=== PATIENT | female | born 1960 | race Caucasian/White ===

== ENCOUNTER → 2023-09-08 12:08 | Outpatient (REF) | payer BC, SELFPAY | LOC: DHCBC/DCA 12:08 | PROVIDERS: ATTENDING PHYSICIAN Internal Medicine Interventional Cardiology; FAMILY PHYSICIAN Emergency Medicine | DX: R06.09 Other forms of dyspnea (principal); G45.9 Transient cerebral ischemic attack, unspecified | CPT/HCPCS: 78452; 93017; A9500 ==

== ENCOUNTER 2023-11-11 10:35 | Emergency (ER) | payer BC, SELFPAY ==
[2023-11-11 10:38] VITALS: BP 128/73; BMI 21.3
[2023-11-11 10:43] VITALS: BP 128/73
--- NOTE | 2023-11-11 10:45 | ED.GENMED ---
History of Present Illness
General
Chief Complaint: Weakness
Time Seen by Provider: 11/11/23 10:37
History of Present Illness
History of Present Illness:
63-year-old female presents to the emergency department for evaluation of abrupt onset of bilateral, left greater than right, leg weakness developing while at work today. She states he was walking out of the freezer at [facility] when she felt as
though she could not walk. She is lowered herself to the ground nonnormal was called. She states the symptoms have since resolved. Has no history of similar. She does have chronic back pain due to known multiple lumbar disc herniations, denies
any bladder or bowel dysfunction, denies any saddle anesthesias or lower extremity paresthesias.
Past History
Past History
ED Past Medical History: Asthma, GERD and Other (? TIA vs complicated migraine)
ED Past Surgical History: Cholecystectomy and
Social History
Tobacco: Non-smoker
Alcohol: Occasional
Drug: None
Personal:
Living: with family
Employment: Employed
Family History
Family History: Other
Review of Systems
Review of Systems
Allergies reviewed?: Yes
All Other Systems: ROS reviewed and negative except as documented in HPI and ROS
Phy Exam
Physical Exam
Physical Exam:
GEN: Well appearing, NAD, WDWN
HEENT: Oral mucosa moist, no scleral icterus, no nasal congestion
Cardiac: Regular rate
Lung: No respiratory distress, no tachypnea
MSK: No gross deformity or injuries
Skin: Good color, no pallor or jaundice, no rashes
Neuro: AO x3; CN II-XII grossly intact. BUE strength 5/5 in all finnegan, sensation intact and symmetric. BLE strength 5/5 in all finnegan, sensation intact and symmetric, patellar reflexes 2+ bilaterally
Psych: Calm, cooperative
Course
Orders/Labs/Results
Orders:
Orders
11/11/23 10:37
Electrocardiogram (*1) Urgent
Reason for Study: Vertigo / Dizzy
EKG- Treatment ONCE
11/11/23 10:40
CMP [Comprehensive Metabolic Panel] Urgent
Complete Blood Count/With Diff Urgent
Abnormal Lab Results
11/11/23
10:40
RBC 4.10 L 10^6/uL
(4.20-5.40)
MCH 32.2 H pg
(27.0-31.0)
Eosinophils % 6.1 H %
(0-6)
BUN 22 H mg/dl
(7-17)
AST 40 H U/L
(14-36)
11/11/23 10:40
11/11/23 10:40
Vital Signs
Initial and Last Documented VS:
Initial Vital Signs
Temp Pulse Resp BP Pulse Ox
98.5 F 84 16 128/73 97
11/11/23 10:38 11/11/23 10:38 11/11/23 10:38 11/11/23 10:38 11/11/23 10:38
Last Documented Vital Signs
Temp Pulse Resp BP Pulse Ox
98.5 F 66 21 127/103 98
11/11/23 10:38 11/11/23 11:45 11/11/23 11:45 11/11/23 11:00 11/11/23 11:45
MDM/Problems Addressed
MDM/Problems Addressed:
Patient has an unremarkable neurologic exam. Certainly consider a TIA versus lumbar radiculopathy, she has no active back pain at this time, and no focal neurologic deficits suggesting spinal cord compression. Doubt CVA/TIA given bilateral nature.
Labs are reassuring. Recommend outpatient primary care follow-up
*Critical Care Note
Total Time (30-74mins, 75-104mins- exclusive of procedures): Not Applicable
ED Attending Note
-
Portions of this chart may have been created with voice recognition software.� Occasional wrong word or��sound alike� substitutions may have occurred due to the inherent limitations of voice recognition software.
Discharge Plan
Departure
Patient Disposition: Home (Routine Discharge)
Date of Disposition: 11/11/23
Time of Disposition: 11:39
Patient with high blood pressure during this ER visit?: No
Discharge Problem:
Bilateral leg weakness
Instructions: Generalized Weakness (DC)
Prescriptions:
No Action
atorvastatin 40 MG tablet
40 mg PO QPM
calcium carb-D3-mag ox-zinc ox 333 mg-133 unit -133 mg-5 mg Tablet
1 tab PO DAILY
aspirin 81 MG tablet,chewable
81 mg PO DAILY
turmeric 400 mg Capsule
400 mg PO DAILY
Potassium
1 dose PO DAILY
doxycycline hyclate 100 mg capsule
100 mg PO BID
clopidogrel 75 mg Tablet
75 mg PO DAILY Qty: 21 0RF
famotidine 20 mg Tablet
20 mg PO BID 30 Days Qty: 60 0RF
Activity Restrictions/Additional Instructions:
Your workup is reassuring and there are no objective signs of weakness on your exam. If your symptoms continue to occur please follow-up with your primary care physician for further workup
Interventions
Interventions:
*Risk Screen - Suicide Last Done: 11/11/23 10:38
*General Assessment Last Done: 11/11/23 10:38
*Neglect/Abuse Screening Last Done: 11/11/23 10:38
ED- Fall Risk Assessment Last Done: 11/11/23 10:38
*ED COVID-19 Vaccine History Last Done: 11/11/23 10:38
*Nursing Disposition Last Done: 11/11/23 11:46
ED- Cardiac Assessment Last Done: 11/11/23 10:38
ED- Neurological Assessment Last Done: 11/11/23 10:38
ED- Pulmonary Assessment Last Done: 11/11/23 10:38
Discharge Date and Time
Discharge Date/Time: 11/11/23 11:57
Print Language: KHMER
[2023-11-11 11:00] VITALS: BP 127/103
[2023-11-11 11:05] LABS: % Basophils 0.8 % (0-2); % Eosinophils 6.1 % (0-6); % Immature Granulocytes 0.2 % (0-0.5); % Lymphocytes 28.7 % (20.5-51.1); % Monocytes 6.3 % (1.7-9.3); % Neutrophils 57.9 % (42.2-75.2); Absolute Basophils 0.1 10^3/uL (0-0.2); Absolute Eosinophils 0.4 10^3/uL (0-0.7); Absolute Lymphocytes 1.9 10^3/uL (1.2-3.4); Absolute Monocytes 0.4 10^3/uL (0.1-0.6); Absolute Neutrophils 3.8 10^3/uL (1.4-6.5); Hematocrit 37.4 % (37.0-47.0); Hemoglobin 13.2 g/dL (12.0-16.0); Mean Corp Hgb Conc. 35.3 g/dL (33.0-37.0); Mean Corpuscular Hgb 32.2 pg (27.0-31.0); Mean Corpuscular Volume 91.2 fL (81.0-99.0); Mean Platelet Volume 8.9 fL (7.4-10.4); Nucleated Red Blood Cells % 0 %; Platelet Count 279 10^3/uL (130-400); Red Cell Dist. Width 11.9 % (11.5-14.5); White Blood Cell Count 6.5 10^3/uL (4.8-10.8)
[2023-11-11 11:10] LABS: ALT (SGPT) 35 U/L (0-35); AST (SGOT) 40 U/L (14-36); Albumin 4.5 g/dl (3.5-5.0); Alkaline Phosphatase 96 U/L (38-126); Blood Urea Nitrogen 22 mg/dl (7-17); Calcium 9.9 mg/dl (8.4-10.2); Carbon Dioxide 28 mmol/L (22-30); Chloride 103 mmol/L (98-107); Estimated Creatinine Clearance 80 ml/min; Glucose 92 mg/dl (70-99); Potassium 4.2 mmol/L (3.5-5.1); Sodium 135 mmol/L (135-145); Total Bilirubin 0.6 mg/dl (0.2-1.3); eGFR > 60.00
== END 2023-11-11 11:57 | disposition home or self-care (01) ==
LOC: EMR 10:35
PROVIDERS: EMERGENCY PHYSICIAN Emergency Medicine; FAMILY PHYSICIAN Emergency Medicine
DX: M62.81 Muscle weakness (generalized) (principal); R26.2 Difficulty in walking, not elsewhere classified; M54.9 Dorsalgia, unspecified; G89.29 Other chronic pain; M51.26 Other intervertebral disc displacement, lumbar region; K21.9 Gastro-esophageal reflux disease without esophagitis; J45.909 Unspecified asthma, uncomplicated; Z79.82 Long term (current) use of aspirin; Z90.49 Acquired absence of other specified parts of digestive tract; Z88.1 Allergy status to other antibiotic agents; Z88.8 Allergy status to other drugs, medicaments and biological substances
CPT/HCPCS: 99283; 80053; 85025; 93005

== ENCOUNTER 2023-12-11 07:19 | Emergency (ER) | payer BC, SELFPAY ==
[2023-12-11 07:23] VITALS: BP 122/56
--- NOTE | 2023-12-11 07:54 | ED.GENMED ---
History of Present Illness
General
Chief Complaint: Abdominal Symptoms
Source: patient
Exam Limitations: none
Time Seen by Provider: 12/11/23 07:54
Nursing documentation reviewed up to this point in time: agreed with
Travel History
Have you had any contact with someone who has COVID-19?: No
Do you have any symptoms of coronavirus? Fever > 100 degrees, chills, cough, shortness of breath, sore throat, loss of taste or smell, muscle aches, or headache?: No
History of Present Illness
History of Present Illness:
63-year-old female with history of TIA, HLD, diverticulitis, hiatal hernia, cholecystectomy, , hernia repair, tubal ligation presents stating for the past several days she has had right lower quadrant pain. She is nauseous but no vomiting.
It is sharp and constant. She denies fever or chills. She had a good bowel movement today.
Past History
Past History
ED Past Medical History: Asthma, GERD, Other (? TIA vs complicated migraine) and Other (Diverticulitis)
ED Past Surgical History: Cholecystectomy and
Social History
Tobacco: Non-smoker
Alcohol: Occasional
Drug: None
Personal:
Living: with family
Employment: Employed
Family History
Family History: Other
Review of Systems
Review of Systems
Allergies reviewed?: Yes
All Other Systems: ROS reviewed and negative except as documented in HPI and ROS
Constitutional: Denies fever or chills
Respiratory: Denies trouble breathing
Cardiac: Denies chest pain
ABD/GI: Reports abdominal pain and nausea; Denies vomiting, diarrhea, constipated, bloody stools or black stools
: Denies dysuria or difficulty voiding
Musculoskeletal: Reports no symptoms
Skin: Reports no symptoms
Neurological: Reports no symptoms
Phy Exam
Physical Exam
Physical Exam:
GENERAL: No acute distress. A&Ox3.
CONSTITUTIONAL: Afebrile.
EYES:clear, conjunctivae normal
Neck: Supple
ENMT: moist mucus membranes, Pharynx nl
RESPIRATORY: Regular respirations, nonlabored, lungs clear.
CARDIOVASCULAR: Regular rate and rhythm, no murmurs, no rubs.
GI: Soft, nontender, normal BS
MUSCULOSKELETAL: Moves with ease. Well perfused.
SKIN: Warm, dry, pink
PSYCH: Normal mood and affect. Well kept, interactive and appropriate
NEUROLOGIC: Awake, alert and oriented. No focal neurological deficits
Course
Orders/Labs/Results
Orders:
Orders
12/11/23 08:03
0.9% Sodium Chloride 1000 ml [Nss] 1,000 ml IV BOLUS
12/11/23 08:04
Iohexol [Omnipaque] See Protocol PO NOW STA
12/11/23 08:05
CT Abd/pel W Iv And Oral Contr Urgent
Comment:
Reason For Exam: LLQ pain
12/11/23 08:13
Complete Blood Count/With Diff Urgent
Comprehensive Metabolic Panel Urgent
Lipase Urgent
12/11/23 08:33
Urinalysis Reflex To Culture Urgent
Date Specimen was Collected: 12/11/23
Time Specimen was Collected: 08:32
Abnormal Lab Results
12/11/23
08:13
RBC 3.98 L 10^6/uL
(4.20-5.40)
Hct 36.4 L %
(37.0-47.0)
MCH 32.4 H pg
(27.0-31.0)
Carbon Dioxide 31 H mmol/L
(22-30)
12/11/23 08:13
12/11/23 08:13
Vital Signs
Initial and Last Documented VS:
Initial Vital Signs
Temp Pulse Resp BP Pulse Ox
98.0 F 78 16 122/56 98
12/11/23 07:23 12/11/23 07:23 12/11/23 07:23 12/11/23 07:23 12/11/23 07:23
Last Documented Vital Signs
Temp Pulse Resp BP Pulse Ox
98.0 F 87 20 126/72 99
12/11/23 07:23 12/11/23 11:45 12/11/23 11:45 12/11/23 11:45 12/11/23 11:45
MDM/Problems Addressed
Differential Diagnosis Includes:
Appendicitis, diverticulitis
MDM/Problems Addressed:
63-year-old female with history of TIA, HLD, diverticulitis, hiatal hernia, cholecystectomy, , hernia repair, tubal ligation presents stating for the past several days she has had right lower quadrant pain. She is nauseous but no vomiting.
It is sharp and constant. She denies fever or chills. She had a good bowel movement today.
9:00 AM
CBC normal
CMP normal
Urinalysis negative
11:15 AM
CAT scan abdomen pelvis IV only contrast radiology report read: IMPRESSION:
1. Severe diverticular disease in the sigmoid colon.
2. Mild intrahepatic and extrahepatic biliary dilatation (probably secondary to previous cholecystectomy).
3. 1.6 cm uterine leiomyoma.
4. Grade 1 anterolisthesis of L4 on L5 secondary to severe facet joint arthrosis.
Pt informed, copy of CT report given to her
Rx for Levaquin and Flagyl sent to her pharmacy
Pt has minimal pain, is pleasant and will follow up with GI Dr. Johnson who knows her.
Patient ambulated out with normal gait upon discharge
*Critical Care Note
Total Time (30-74mins, 75-104mins- exclusive of procedures): Not Applicable
ED Attending Note
-
Portions of this chart may have been created with voice recognition software.� Occasional wrong word or��sound alike� substitutions may have occurred due to the inherent limitations of voice recognition software.
Discharge Plan
Departure
Patient Disposition: Home (Routine Discharge)
Date of Disposition: 12/11/23
Time of Disposition: 11:28
Patient with high blood pressure during this ER visit?: No
Condition: Good
Discharge Problem:
Acute diverticulitis
Instructions: Diverticulitis (DC)
Prescriptions:
New
levofloxacin 500 mg tablet
500 mg PO DAILY 10 Days Qty: 10 0RF
metronidazole 500 mg tablet
500 mg PO TID Qty: 30 0RF
No Action
atorvastatin 40 MG tablet
40 mg PO QPM
calcium carb-D3-mag ox-zinc ox 333 mg-133 unit -133 mg-5 mg Tablet
1 tab PO DAILY
aspirin 81 MG tablet,chewable
81 mg PO DAILY
turmeric 400 mg Capsule
400 mg PO DAILY
Potassium
1 dose PO DAILY
doxycycline hyclate 100 mg capsule
100 mg PO BID
clopidogrel 75 mg Tablet
75 mg PO DAILY Qty: 21 0RF
famotidine 20 mg Tablet
20 mg PO BID 30 Days Qty: 60 0RF
Referrals:
Vivian Fong MD [Family Provider] -
Gege Johnson MD [Active] - Call in 1-3 days for appt
Stand Alone Forms: Return to Work
Activity Restrictions/Additional Instructions:
As we discussed, you have diverticulitis.
Clear liquid diet for the next 2 days to give your bowel a rest then gradually increase your diet.
I sent a prescription to your pharmacy for Levaquin 500 mg daily for 10 days and for Flagyl 500 mg 3 times a day for [address] Johnson's office tomorrow and ask when you should follow-up.
Return here immediately for worsening pain, bloody stools, fever or feeling sicker in any way
Interventions
Interventions:
*Risk Screen - Suicide Last Done: 12/11/23 08:20
*General Assessment Last Done: 12/11/23 08:20
*Neglect/Abuse Screening Last Done: 12/11/23 08:20
*ED COVID-19 Vaccine History Last Done: 12/11/23 07:23
*Nursing Disposition Last Done: 12/11/23 11:45
AD-Cnmums-Bonjyfmszb Assessment Last Done: 12/11/23 08:20
Discharge Date and Time
Discharge Date/Time: 12/11/23 11:46
Print Language: KYRGYZ
[2023-12-11] MEDS: OMNIPAQUE 50 ML PO (08:28)
[2023-12-11 08:30] VITALS: BP 124/76
[2023-12-11] MEDS: NSS 1000 IV (08:30)
[2023-12-11 08:32] LABS: % Basophils 0.8 % (0-2); % Eosinophils 5.8 % (0-6); % Immature Granulocytes 0.3 % (0-0.5); % Lymphocytes 27.6 % (20.5-51.1); % Monocytes 6.1 % (1.7-9.3); % Neutrophils 59.4 % (42.2-75.2); Absolute Basophils 0.1 10^3/uL (0-0.2); Absolute Eosinophils 0.3 10^3/uL (0-0.7); Absolute Lymphocytes 1.6 10^3/uL (1.2-3.4); Absolute Monocytes 0.4 10^3/uL (0.1-0.6); Absolute Neutrophils 3.5 10^3/uL (1.4-6.5); Hematocrit 36.4 % (37.0-47.0); Hemoglobin 12.9 g/dL (12.0-16.0); Mean Corp Hgb Conc. 35.4 g/dL (33.0-37.0); Mean Corpuscular Hgb 32.4 pg (27.0-31.0); Mean Corpuscular Volume 91.5 fL (81.0-99.0); Nucleated Red Blood Cells % 0 %; Platelet Count 265 10^3/uL (130-400); Red Blood Cell Count 3.98 10^6/uL (4.20-5.40); Red Cell Dist. Width 11.8 % (11.5-14.5); White Blood Cell Count 5.9 10^3/uL (4.8-10.8)
[2023-12-11 08:37] LABS: ALT (SGPT) 32 U/L (0-35); AST (SGOT) 36 U/L (14-36); Albumin 4.4 g/dl (3.5-5.0); Alkaline Phosphatase 99 U/L (38-126); Blood Urea Nitrogen 15 mg/dl (7-17); Calcium 9.8 mg/dl (8.4-10.2); Carbon Dioxide 31 mmol/L (22-30); Chloride 102 mmol/L (98-107); Glucose 97 mg/dl (70-99); Lipase 73 U/L (23-300); Potassium 4.5 mmol/L (3.5-5.1); Sodium 140 mmol/L (135-145); Total Bilirubin 0.5 mg/dl (0.2-1.3); Total Protein 6.6 g/dl (6.3-8.2); eGFR > 60.00
[2023-12-11 08:41] LABS: Urine Albumin Negative (Neg - Trace); Urine Bilirubin Negative (Negative); Urine Character Clear (Clear); Urine Color Yellow; Urine Glucose Negative (Negative); Urine Ketone Negative (Negative); Urine Leukocyte Negative (Negative); Urine Nitrite Negative (Negative); Urine Occult Blood Negative (Negative); Urine Urobilinogen Negative (Neg - 1+)
[2023-12-11 10:25] VITALS: BP 119/86
[2023-12-11 11:45] VITALS: BP 126/72
== END 2023-12-11 11:46 | disposition home or self-care (01) ==
LOC: EMR 07:19
PROVIDERS: Registered Nurse; EMERGENCY PHYSICIAN Emergency Medicine; FAMILY PHYSICIAN Emergency Medicine
DX: K57.30 Diverticulosis of large intestine without perforation or abscess without bleeding (principal); E78.5 Hyperlipidemia, unspecified
CPT/HCPCS: 99285; 96360; 74177; 80053; 81003; 83690; 85025; Q9967

== ENCOUNTER → 2023-12-23 09:12 | Outpatient (REF) | payer BC, SELFPAY | LOC: HWRAD 09:12 | PROVIDERS: ATTENDING PHYSICIAN Emergency Medicine | DX: Z12.31 Encounter for screening mammogram for malignant neoplasm of breast (principal); N95.1 Menopausal and female climacteric states; M54.50 Low back pain, unspecified; M54.6 Pain in thoracic spine | CPT/HCPCS: 72072; 72110; 77063; 77067; 77080 ==

== ENCOUNTER → 2023-12-28 11:03 | Outpatient (REF) | payer BC, SELFPAY | LOC: PAVMRI 11:03 | PROVIDERS: ATTENDING PHYSICIAN Nurse Practitioner Adult Health; FAMILY PHYSICIAN Emergency Medicine | DX: R20.0 Anesthesia of skin (principal); H54.61 Unqualified visual loss, right eye, normal vision left eye; R53.1 Weakness | CPT/HCPCS: 70553; A9575 ==

== ENCOUNTER → 2024-01-12 08:44 | Outpatient (REF) | payer BC, SELFPAY ==
[2024-01-12 12:37] LABS: Urine Albumin Negative (Neg - Trace); Urine Bilirubin Negative (Negative); Urine Character Clear (Clear); Urine Color Yellow; Urine Glucose Negative (Negative); Urine Ketone Negative (Negative); Urine Leukocyte Negative (Negative); Urine Nitrite Negative (Negative); Urine Occult Blood Negative (Negative); Urine Specific Gravity 1.005 (<1.030); Urine Urobilinogen Negative (Neg - 1+)
[2024-01-12 13:39] LABS: HDL Cholesterol 68 mg/dl; LDL Cholesterol, Calculated 59 mg/dl; Total Cholesterol 137 mg/dl (50-199); Triglyceride 53 mg/dl (10-149); Very Low Density Lipoprotein 10 mg/dl (0-30)
[2024-01-12 13:45] LABS: Glycohemoglobin (HgbA1c) 5.3 % (4.0-5.6)
[2024-01-12 14:02] LABS: TSH Reflex To Free T4 0.89 uIU/ml (0.47-4.68)
== END ==
LOC: HWRAD 08:44
PROVIDERS: ATTENDING PHYSICIAN Emergency Medicine
DX: M54.50 Low back pain, unspecified (principal); M54.6 Pain in thoracic spine; R10.2 Pelvic and perineal pain; Z00.00 Encounter for general adult medical examination without abnormal findings
CPT/HCPCS: 36415; 80061; 81003; 83036; 84443

== ENCOUNTER → 2024-02-02 09:15 | Outpatient (REF) | payer BC, SELFPAY | LOC: PAVMRI 09:15 | PROVIDERS: ATTENDING PHYSICIAN Emergency Medicine | DX: M51.26 Other intervertebral disc displacement, lumbar region (principal); R29.898 Other symptoms and signs involving the musculoskeletal system; M54.16 Radiculopathy, lumbar region | CPT/HCPCS: 72148 ==

== ENCOUNTER → 2024-02-03 08:47 | Outpatient (REF) | payer BC, SELFPAY | LOC: HWRAD 08:47 | PROVIDERS: ATTENDING PHYSICIAN Emergency Medicine | DX: R10.2 Pelvic and perineal pain (principal) | CPT/HCPCS: 76830; 76856 ==

== ENCOUNTER → 2024-05-25 10:12 | Outpatient (REF) | payer BC, SELFPAY ==
[2024-05-25 12:39] LABS: Blood Urea Nitrogen 15 mg/dl (7-17)
== END ==
LOC: HWLAB 10:12
PROVIDERS: ATTENDING PHYSICIAN Internal Medicine Gastroenterology; FAMILY PHYSICIAN Emergency Medicine
DX: K57.20 Diverticulitis of large intestine with perforation and abscess without bleeding (principal)
CPT/HCPCS: 36415; 82565; 84520

== ENCOUNTER → 2024-05-28 09:44 | Outpatient (REF) | payer BC, SELFPAY | LOC: HWRAD 09:44 | PROVIDERS: ATTENDING PHYSICIAN Internal Medicine Gastroenterology; FAMILY PHYSICIAN Emergency Medicine | DX: K57.20 Diverticulitis of large intestine with perforation and abscess without bleeding (principal) | CPT/HCPCS: 74177; Q9967 ==

== ENCOUNTER → 2024-09-26 13:32 | Outpatient (REF) | payer BC, SELFPAY ==
[2024-09-26 15:48] LABS: ALT (SGPT) 31 U/L (0-35); AST (SGOT) 38 U/L (14-36); Albumin 4.5 g/dl (3.5-5.0); Alkaline Phosphatase 92 U/L (38-126); Blood Urea Nitrogen 14 mg/dl (7-17); Calcium 9.9 mg/dl (8.4-10.2); Carbon Dioxide 30 mmol/L (22-30); Chloride 105 mmol/L (98-107); Glucose 94 mg/dl (70-99); Lipase 101 U/L (23-300); Potassium 4.2 mmol/L (3.5-5.1); Sodium 141 mmol/L (135-145); Total Bilirubin 0.8 mg/dl (0.2-1.3); Total Protein 7.1 g/dl (6.3-8.2); eGFR > 60.00
[2024-09-27 04:38] LABS: IgA 129 mg/dl (70-400)
[2024-09-28 19:17] LABS: tTG IgA Antibody <1.02 FLU (0.00-4.99)
== END ==
LOC: REG 13:32
PROVIDERS: ATTENDING PHYSICIAN Emergency Medicine
DX: R11.0 Nausea (principal); R10.13 Epigastric pain; K21.9 Gastro-esophageal reflux disease without esophagitis; R14.0 Abdominal distension (gaseous)
CPT/HCPCS: 36415; 80053; 82784; 83516; 83690; 86231; 87338

== ENCOUNTER 2024-11-24 10:25 | Emergency (ER) | payer BC, SELFPAY ==
[2024-11-24 10:33] VITALS: BP 103/70
[2024-11-24 11:19] VITALS: BMI 26.7
--- NOTE | 2024-11-24 13:00 | ED.GENMED ---
History of Present Illness
General
Chief Complaint: Musculo-Skeletal Complaint
Source: patient
Exam Limitations: none
Time Seen by Provider: 11/24/24 11:31
Nursing documentation reviewed up to this point in time: agreed with
History of Present Illness
History of Present Illness:
PT IS A 64 Y/O F
h/o TIS/stroke/
Past History
Past History
ED Past Medical History: Asthma, GERD, Other (? TIA vs complicated migraine) and Other (Diverticulitis)
ED Past Surgical History: Cholecystectomy and
Social History
Tobacco: Non-smoker
Alcohol: Occasional
Drug: None
Personal:
Living: with family
Employment: Employed
Family History
Family History: Other
Phy Exam
Physical Exam
Physical Exam:
GENERAL: Alert , in no apparent distress, comfortable at rest
HEAD: NCAT
CV: 2+ DP PULSES B/L
NEUROLOGICAL: Alert and oriented, no focal neuro deficits, , 5/5 strength, sensation intact, ambulation
SKIN: Warm and dry,
MUSCULOSKELETAL:right ankle mild swelling just inferior to lateral malleolus/posteriorly
the achilles is intact
calcaneus with mild tenderness, no sking changes
normla nv exam
ankle stable
ambulatory
PSYCH: Normal and appropriate interaction.
Course
Orders/Labs/Results
Orders:
Orders
11/24/24 10:36
Ankle, Right 3 view CR [CR Ankle - Right Min 3 Views *] Urgent
Comment:
Reason For Exam: injury, pain, swelling
11/24/24 11:45
CR Foot - Right Min 3 Views Urgent
Comment:
Reason For Exam: right foot pain/heel pain, somethin ghit her post
Vital Signs
Initial and Last Documented VS:
Initial Vital Signs
Temp Pulse Resp BP Pulse Ox
36.8 C 69 22 103/70 98
11/24/24 10:33 11/24/24 10:33 11/24/24 10:33 11/24/24 10:33 11/24/24 10:33
Last Documented Vital Signs
Temp Pulse Resp BP Pulse Ox
36.8 C 69 22 103/70 98
11/24/24 10:33 11/24/24 10:33 11/24/24 10:33 11/24/24 10:33 11/24/24 10:33
MDM/Problems Addressed
Differential Diagnosis Includes:
ankle sprain, achillest endinitis, calcaneus spur
MDM/Problems Addressed:
heavy cart hit the back of her ankle 2 qweeks ago
pain and still mild swelling posterior lateral ankle region
just lateral to achilles
achilles isintact
not significantly tender, mild tender
NV itnact
tender to calcaneus spur/plantar fasciitis
xrays shoe heel spur
but no other signfiicant finginds
pt is very ambulatory
will give her an ankle brace
f/u withfoot/ankle specialist
*Critical Care Note
Total Time (30-74mins, 75-104mins- exclusive of procedures): Not Applicable
ED Attending Note
-
Portions of this chart may have been created with voice recognition software.� Occasional wrong word or��sound alike� substitutions may have occurred due to the inherent limitations of voice recognition software.
Discharge Plan
Departure
Patient Disposition: Home (Routine Discharge)
Date of Disposition: 11/24/24
Time of Disposition: 13:03
Patient with high blood pressure during this ER visit?: No
Condition: Fair
Covid-19: Not Applicable
Discharge Problem:
Pain in right ankle
Instructions: Sprain (DC), Heel Spurs (DC)
Prescriptions:
No Action
atorvastatin 40 MG tablet
40 mg PO QPM
calcium carb-D3-mag ox-zinc ox 333 mg-133 unit -133 mg-5 mg Tablet
1 tab PO DAILY
aspirin 81 MG tablet,chewable
81 mg PO DAILY
turmeric 400 mg Capsule
400 mg PO DAILY
Potassium
1 dose PO DAILY
doxycycline hyclate 100 mg capsule
100 mg PO BID
clopidogrel 75 mg Tablet
75 mg PO DAILY Qty: 21 0RF
famotidine 20 mg Tablet
20 mg PO BID 30 Days Qty: 60 0RF
levofloxacin 500 mg tablet
500 mg PO DAILY 10 Days Qty: 10 0RF
metronidazole 500 mg tablet
500 mg PO TID Qty: 30 0RF
Referrals:
Vivian Fong MD [Family Provider] -
Alexander Posada DPM [Active] - Follow up in 5-7 days
Activity Restrictions/Additional Instructions:
YOUR XRAYS SHOW A HEEL SPUR BUT NO FRACTURES
YOU PROBABLY IRRITATED THE TENDON IN THE BACK OF YOUR ANKLE
YOU ALSO COULD HAVE PLANTAR FASCIITIS
TAKE MOTRIN EVERY 8 HOURS WITH FOOD
WEAR THE BRACE WHILE YOU ARE WALKING AROUND, TAKE IT OFF AT NIGHT
FOLLOW UP WITH FOOT/ANKLE DOCTOR
RETURN FOR ANY CONCERS
Interventions
Interventions:
*Risk Screen - Suicide Last Done: 11/24/24 10:33
*General Assessment Last Done: 11/24/24 10:33
*Neglect/Abuse Screening Last Done: 11/24/24 10:33
*ED- Fall Risk Assessment Last Done: 11/24/24 11:19
*ED COVID-19 Vaccine History Last Done: 11/24/24 11:19
*Nursing Disposition Last Done: 11/24/24 13:21
ED-Musculoskeletal Assessment Last Done: 11/24/24 11:19
Discharge Date and Time
Discharge Date/Time: 11/24/24 13:22
Print Language: [email or web address]
== END 2024-11-24 13:22 | disposition home or self-care (01) ==
LOC: EMR 10:25
PROVIDERS: EMERGENCY PHYSICIAN Emergency Medicine; FAMILY PHYSICIAN Emergency Medicine
DX: M25.571 Pain in right ankle and joints of right foot (principal); J45.909 Unspecified asthma, uncomplicated; K21.9 Gastro-esophageal reflux disease without esophagitis; Z86.73 Personal history of transient ischemic attack (TIA), and cerebral infarction without residual deficits; Z90.49 Acquired absence of other specified parts of digestive tract
CPT/HCPCS: 99283; 73610; 73630

== ENCOUNTER → 2025-04-11 06:35 | Outpatient (REF) | payer BC, SELFPAY ==
[2025-04-11 07:24] LABS: Hematocrit 41.3 % (37.0-47.0); Hemoglobin 14.0 g/dL (12.0-16.0); Mean Corp Hgb Conc. 33.9 g/dL (33.0-37.0); Mean Corpuscular Volume 95.6 fL (81.0-99.0); Nucleated Red Blood Cells % 0 %; Platelet Count 242 10^3/uL (130-400); Red Cell Dist. Width 11.9 % (11.5-14.5)
[2025-04-11 07:25] LABS: Urine Character Clear (Clear)
[2025-04-11 07:45] LABS: ALT (SGPT) 29 U/L (0-35); AST (SGOT) 32 U/L (14-36); Albumin 4.4 g/dl (3.5-5.0); Alkaline Phosphatase 71 U/L (38-126); Blood Urea Nitrogen 14 mg/dl (7-17); Calcium 9.7 mg/dl (8.4-10.2); Carbon Dioxide 30 mmol/L (22-30); Chloride 107 mmol/L (98-107); Glucose 89 mg/dl (70-99); HDL Cholesterol 85 mg/dl; LDL Cholesterol, Calculated 70 mg/dl; Potassium 4.8 mmol/L (3.5-5.1); Sodium 140 mmol/L (135-145); Total Protein 6.8 g/dl (6.3-8.2); Very Low Density Lipoprotein 9 mg/dl (0-30); eGFR > 60.00
[2025-04-11 08:42] LABS: Glycohemoglobin (HgbA1c) 5.2 % (4.0-5.6)
== END ==
LOC: RAD 06:35
PROVIDERS: FAMILY PHYSICIAN Emergency Medicine; OTHER PHYSICIAN Student in an Organized Health Care Education/Training Program
DX: R09.89 Other specified symptoms and signs involving the circulatory and respiratory systems (principal); Z00.00 Encounter for general adult medical examination without abnormal findings; K21.9 Gastro-esophageal reflux disease without esophagitis; K25.7 Chronic gastric ulcer without hemorrhage or perforation; M81.0 Age-related osteoporosis without current pathological fracture; Z51.81 Encounter for therapeutic drug level monitoring
CPT/HCPCS: 36415; 76770; 80053; 80061; 81003; 83036; 84443; 85025

== ENCOUNTER → 2025-05-23 08:04 | Outpatient (REF) | payer BC, SELFPAY ==
[2025-05-23 12:54] LABS: Hematocrit 44.4 % (37.0-47.0); Hemoglobin 14.8 g/dL (12.0-16.0); Mean Corp Hgb Conc. 33.3 g/dL (33.0-37.0); Mean Corpuscular Volume 98.2 fL (81.0-99.0); Nucleated Red Blood Cells % 0 %; Platelet Count 280 10^3/uL (130-400); Red Cell Dist. Width 11.8 % (11.5-14.5)
== END ==
LOC: HWWDC 08:04
PROVIDERS: ATTENDING PHYSICIAN Specialist Research Data Abstracter/Coder; FAMILY PHYSICIAN Emergency Medicine
DX: Z12.31 Encounter for screening mammogram for malignant neoplasm of breast (principal); R89.9 Unspecified abnormal finding in specimens from other organs, systems and tissues
CPT/HCPCS: 36415; 77063; 77067; 85025

== ENCOUNTER → 2025-06-07 09:13 | Outpatient (REF) | payer BC, SELFPAY | LOC: WDC 09:13 | PROVIDERS: ATTENDING PHYSICIAN Specialist Research Data Abstracter/Coder | DX: R92.8 Other abnormal and inconclusive findings on diagnostic imaging of breast (principal) | CPT/HCPCS: 76642 ==

== ENCOUNTER → 2025-06-19 10:44 | Outpatient (REF) | payer BC, SELFPAY | LOC: HWRCS 10:44 | PROVIDERS: ATTENDING PHYSICIAN Physician Assistant Medical | DX: R42 Dizziness and giddiness (principal); R01.1 Cardiac murmur, unspecified | CPT/HCPCS: 93306 ==

== ENCOUNTER 2025-06-24 05:39 | Emergency (ER) | payer SELFPAY ==
[2025-06-24 05:44] VITALS: BP 120/70
[2025-06-24] MEDS: TYLENOL 1000 MG PO (07:29)
[2025-06-24] MEDS: MOTRIN 800 MG PO (07:30)
--- NOTE | 2025-06-24 07:52 | ED.GENMED ---
History of Present Illness
General
Chief Complaint: Musculo-Skeletal Complaint
Time Seen by Provider: 06/24/25 07:10
History of Present Illness
History of Present Illness:
Versus 64-year-old female with past medical history of left knee replacement who presents with right knee pain after coming down the stairs and twisting her leg at work today. Denies falling. Pain did not improve she presented to the ER for
evaluation.
Past History
Past History
ED Past Medical History: Asthma, GERD, Other (? TIA vs complicated migraine) and Other (Diverticulitis)
ED Past Surgical History: Cholecystectomy and
Social History
Tobacco: Non-smoker
Alcohol: Occasional
Drug: None
Personal:
Living: with family
Employment: Employed
Family History
Family History: Other
Phy Exam
General Physical Exam
General Presentation: well appearing and no apparent distress
General Skin: warm and dry
General Habitus: normal
General Mental: alert
General Hydration: appears well hydrated
ENT Exam
ENT Exam: EOMI, pharynx normal, neck supple and normocephalic
Eye Exam
Eye Exam: PERRL, cornea clear and conjunctiva normal
Cardiovascular Exam
Cardiovascular Exam: regular rate/rhythm, no edema, no murmur and normal peripheral pulses
Pulmonary Exam
Pulmonary Exam: lungs clear, no respiratory distress, no rales, no crackles, no rhonchi, no stridor, no wheezing and no cough
Gastrointestinal Exam
Gastrointestinal Exam: normal bowel sounds, non tender, soft, no organomegaly, no pulsatile mass and non distended
Neurological Exam
Neurological Exam: alert, oriented x3, no motor deficits and speech normal
Musculoskeletal Exam
Musculoskeletal Exam: full ROM, no edema and other (No swelling, erythema or external signs of trauma to the right knee. Actively range her knee.)
Skin Exam
Skin Exam: normal color, warm/dry, no rash and no petechia
Psychiatric Exam
Psychiatric Exam: normal mood/affect
Course
Orders/Labs/Results
Orders:
Orders
06/24/25 05:48
Knee, Right 4 or More Views [CR Knee- Right 4 Or More View*] Urgent
Comment:
Reason For Exam: GAVE OUT COMING DOWN STEPS
06/24/25 07:24
Acetaminophen [Tylenol] 1,000 mg PO NOW STA
Ibuprofen [Motrin] 800 mg PO NOW STA
06/24/25 07:28
Knee Immobilizer Right-Treatme ONCE
Vital Signs
Initial and Last Documented VS:
Initial Vital Signs
Temp Pulse Resp BP Pulse Ox
36.6 C 74 18 120/70 100
06/24/25 05:44 06/24/25 05:44 06/24/25 05:44 06/24/25 05:44 06/24/25 05:44
Last Documented Vital Signs
Temp Pulse Resp BP Pulse Ox
36.6 C 74 18 120/70 100
06/24/25 05:44 06/24/25 05:44 06/24/25 05:44 06/24/25 05:44 06/24/25 07:52
MDM/Problems Addressed
Differential Diagnosis Includes:
There is no visible swelling or ecchymosis to the knee. No external signs of trauma. Knee x-ray obtained and negative for any fracture. Discussed with the patient supportive treatment for knee sprain versus ligamentous injury. Knee immobilizer
given for comfort. Patient prefers to follow-up with her orthopedic surgeon in [place]. She will call to make an appointment if pain does not improve within 1 week.
*Pulse Oximetry
SaO2: 100
Oxygen Mode of Delivery: Room air
Patient hypoxic: no
*Critical Care Note
Total Time (30-74mins, 75-104mins- exclusive of procedures): Not Applicable
ED Attending Note
-
Portions of this chart may have been created with voice recognition software.� Occasional wrong word or��sound alike� substitutions may have occurred due to the inherent limitations of voice recognition software.
Discharge Plan
Departure
Patient Disposition: Home (Routine Discharge)
Date of Disposition: 06/24/25
Time of Disposition: 07:23
Patient with high blood pressure during this ER visit?: No
Discharge Problem:
Knee sprain
Instructions: Knee Sprain ED
Prescriptions:
No Action
atorvastatin 40 MG tablet
40 mg PO QPM
calcium carb-D3-mag ox-zinc ox 333 mg-133 unit -133 mg-5 mg Tablet
1 tab PO DAILY
aspirin 81 MG tablet,chewable
81 mg PO DAILY
turmeric 400 mg Capsule
400 mg PO DAILY
Potassium
1 dose PO DAILY
doxycycline hyclate 100 mg capsule
100 mg PO BID
clopidogrel 75 mg Tablet
75 mg PO DAILY Qty: 21 0RF
famotidine 20 mg Tablet
20 mg PO BID 30 Days Qty: 60 0RF
levofloxacin 500 mg tablet
500 mg PO DAILY 10 Days Qty: 10 0RF
metronidazole 500 mg tablet
500 mg PO TID Qty: 30 0RF
Referrals:
Vivian Fong MD [Family Provider, Internal Medicine]
Stand Alone Forms: Return to Work
Activity Restrictions/Additional Instructions:
You should take Tylenol and ibuprofen for pain. Is important to rest your knee as able. May use ice to help decrease swelling. Knee immobilizer has been given to you - you should not drive with this on. Follow-up with your orthopedic surgeon if
symptoms do not improve within the next week.
Interventions
Interventions:
*General Assessment Last Done: 06/24/25 07:14
*Neglect/Abuse Screening Last Done: 06/24/25 05:44
*ED COVID-19 Vaccine History Last Done: 06/24/25 07:14
*ED Influenza Vaccine History Last Done: 06/24/25 07:14
[facility] Risk Assessment Tool Last Done: 06/24/25 06:36
*Risk Screen - Suicide (C-SSRS) Last Done: 06/24/25 05:44
ED-Musculoskeletal Assessment Last Done: 06/24/25 06:37
Discharge Date and Time
Print Language: [email or web address]
== END 2025-06-24 08:00 | disposition home or self-care (01) ==
LOC: EMR 05:39
PROVIDERS: EMERGENCY PHYSICIAN Emergency Medicine; FAMILY PHYSICIAN Emergency Medicine
DX: S83.91XA Sprain of unspecified site of right knee, initial encounter (principal); X50.1XXA Overexertion from prolonged static or awkward postures, initial encounter; Y93.01 Activity, walking, marching and hiking; Y99.0 Civilian activity done for income or pay; Z96.652 Presence of left artificial knee joint
CPT/HCPCS: 29505; 99283; 73564

== ENCOUNTER 2025-06-26 11:30 | Emergency (ER) | payer BC, SELFPAY ==
[2025-06-26 11:32] VITALS: BP 135/80
[2025-06-26 12:16] VITALS: BMI 25.8
--- NOTE | 2025-06-26 13:25 | ED.MUSCINJ ---
HPI-Injury
General
Chief Complaint: Musculo-Skeletal Complaint
Source: patient
Exam Limitations: none
Time Seen by Provider: 06/26/25 13:04
History of Present Illness-Injury
Initial Injury comments:
64-year-old female presents complaining of increased pain to the right knee. She was seen here 2 days ago after a work related injury when she sprained her right knee. She was given a knee immobilizer and crutches. She states she was trying to
get around the house yesterday with her brace and crutches and felt a pop in her knee. Since then she has had increased pain to the anterior lateral and posterior aspect of the knee with inability to bear weight. There was no fall. She tried
ibuprofen. She has been icing it all night. No other complaints at this time
Past History
Past History
ED Past Medical History: Asthma, GERD, Other (? TIA vs complicated migraine) and Other (Diverticulitis)
ED Past Surgical History: Cholecystectomy and
Social History
Tobacco: Non-smoker
Alcohol: Occasional
Drug: None
Personal:
Living: with family
Employment: Employed
Family History
Family History: Other
Phy Exam
Physical Exam
Physical Exam:
General: Well-appearing female no acute respiratory distress
HEENT: Normal cephalic atraumatic
Musculoskeletal exam: Right knee without effusion. She is tender to the posterior lateral joint line. There is increased pain with varus stress. She is able to perform straight leg raise without difficulty. She is able to flex to 90 degrees.
She has full tension.
Skin is intact
Injury Course
Orders/Labs/Results
Orders:
Orders
06/26/25 13:22
Walker [Treatment- Walker] ONCE
MDM/Problems Addressed
Differential Diagnosis Includes:
Patient felt a pop in the right knee she was seen here 2 days ago for a right knee sprain. I think she has exasperated right knee sprain exam somewhat concerning for potential meniscus injury. Patient feels as though she would do better with a
walker. A walker was ordered. Will try an Mitchel bandage instead. Prescribe something stronger for pain for her. She was referred to orthopedic
*Pulse Oximetry
SaO2: 98
Oxygen Mode of Delivery: Room air
Patient hypoxic: no
*Critical Care Note
Total Time (30-74mins, 75-104mins- exclusive of procedures): Not Applicable
Update Note
Update Note:
. Patient was provided a walker and an Mitchel bandage. Patient was prescribed a stronger pain medicine and was referred to orthopedics
ED Attending Note
-
Portions of this chart may have been created with voice recognition software.� Occasional wrong word or��sound alike� substitutions may have occurred due to the inherent limitations of voice recognition software.
Discharge Plan
Departure
Patient Disposition: Home (Routine Discharge)
Date of Disposition: 06/26/25
Time of Disposition: 14:38
Patient with high blood pressure during this ER visit?: No
Discharge Problem:
Injury of knee
Instructions: Muscle and Bone Pain (DC)
Prescriptions:
New
hydrocodone-acetaminophen 5-325 mg tablet
1 tab PO TID PRN (Reason: Pain) Qty: 10 0RF
No Action
atorvastatin 40 MG tablet
40 mg PO QPM
calcium carb-D3-mag ox-zinc ox 333 mg-133 unit -133 mg-5 mg Tablet
1 tab PO DAILY
aspirin 81 MG tablet,chewable
81 mg PO DAILY
turmeric 400 mg Capsule
400 mg PO DAILY
Potassium
1 dose PO DAILY
doxycycline hyclate 100 mg capsule
100 mg PO BID
clopidogrel 75 mg Tablet
75 mg PO DAILY Qty: 21 0RF
famotidine 20 mg Tablet
20 mg PO BID 30 Days Qty: 60 0RF
levofloxacin 500 mg tablet
500 mg PO DAILY 10 Days Qty: 10 0RF
metronidazole 500 mg tablet
500 mg PO TID Qty: 30 0RF
Referrals:
Vivian Fong MD [Family Provider, Internal Medicine]
Miguel Rawls MD [Active, Orthopedics]
Stand Alone Forms: Return to Work
Activity Restrictions/Additional Instructions:
Use walker for ambulation. Take prescribed pain medicine as needed for severe pain. Follow-up with orthopedic
Interventions
Interventions:
*General Assessment Last Done: 06/26/25 11:32
*Neglect/Abuse Screening Last Done: 06/26/25 11:32
*ED COVID-19 Vaccine History Last Done: 06/26/25 11:32
*ED Influenza Vaccine History Last Done: 06/26/25 11:32
[facility] Risk Assessment Tool Last Done: 06/26/25 12:16
*Risk Screen - Suicide (C-SSRS) Last Done: 06/26/25 11:32
ED-Musculoskeletal Assessment Last Done: 06/26/25 12:16
Discharge Date and Time
Print Language: HEBREW
== END 2025-06-26 15:04 | disposition home or self-care (01) ==
LOC: EMR 11:30
PROVIDERS: EMERGENCY PHYSICIAN Emergency Medicine; FAMILY PHYSICIAN Emergency Medicine
DX: S83.91XA Sprain of unspecified site of right knee, initial encounter (principal); X58.XXXA Exposure to other specified factors, initial encounter
CPT/HCPCS: 99282